=== PATIENT | male | born 1990 | race Caucasian/White ===

== ENCOUNTER → 2025-02-03 08:55 | Outpatient (REF) | payer BC, SELFPAY | LOC: DHSLP 08:55 | PROVIDERS: ATTENDING PHYSICIAN Internal Medicine; FAMILY PHYSICIAN Registered Nurse | DX: G47.33 Obstructive sleep apnea (adult) (pediatric) (principal); R06.83 Snoring | CPT/HCPCS: 95800 ==

== ENCOUNTER → 2025-03-10 15:06 | Outpatient (REF) | payer BC, SELFPAY | LOC: DHSLP 15:06 | PROVIDERS: ATTENDING PHYSICIAN Internal Medicine; FAMILY PHYSICIAN Registered Nurse | DX: G47.19 Other hypersomnia (principal); R06.83 Snoring | CPT/HCPCS: 95810 ==

== ENCOUNTER → 2025-06-21 10:39 | Outpatient (REF) | payer BC, SELFPAY | LOC: RCS 10:39 | PROVIDERS: ATTENDING PHYSICIAN Internal Medicine Cardiovascular Disease; FAMILY PHYSICIAN Registered Nurse | DX: R55 Syncope and collapse (principal) | CPT/HCPCS: 93017 ==

== ENCOUNTER → 2025-06-22 16:19 | Outpatient (REF) | payer BC, SELFPAY | LOC: RAD 16:19 | PROVIDERS: ATTENDING PHYSICIAN Registered Nurse | DX: R10.31 Right lower quadrant pain (principal) | CPT/HCPCS: 74177; Q9967 ==

== ENCOUNTER → 2025-06-25 12:44 | Outpatient (REF) | payer BC, SELFPAY | LOC: RCS 12:44 | PROVIDERS: ATTENDING PHYSICIAN Internal Medicine Cardiovascular Disease; FAMILY PHYSICIAN Registered Nurse | DX: R55 Syncope and collapse (principal) | CPT/HCPCS: 93306 ==